=== PATIENT | female | born 1960 | race Two or more races ===

== ENCOUNTER 2022-12-21 19:35 | Inpatient (IN) | payer MEDICAID ==
[~2022-12-21] VITALS: Ht 167.6 cm; Wt 97.1 kg
[2022-12-21 21:21] LABS: GLUCOMETER DEV NAME(LOC) POC.BV; POC SARS-COV2 AG, FIA NEGATIVE (NEGATIVE)
[2022-12-21] MEDS ORDERED: INFLUENZA VIRUS VACCINE QVS 2023-24 (6MO+)/PF 60 MCG/0.5 ML SYRINGE IM. ONE (21:45)
[2022-12-21] MEDS: ZOLPIDEM TARTRATE 10 MG TABLET PO PRN (22:41)
[2022-12-21 22:54] VITALS: BP 111/85; PULSE 78; RESP 18; TEMP 97.2; O2SAT 97
[2022-12-22] MEDS ORDERED: OMEPRAZOLE 20 MG CAPSULE PO PRN (06:15)
[2022-12-22] MEDS ORDERED: ONDANSETRON HCL 4 MG TABLET PO PRN (06:15)
[2022-12-22] MEDS ORDERED: CloNIDine HCL 0.1 MG TABLET PO PRN (06:15)
[2022-12-22] MEDS ORDERED: ALBUTEROL SULFATE HFA 90 MCG/PUFF 8 GM INHALER IH PRN (06:15)
[2022-12-22] MEDS ORDERED: MAG HYDROX/ALUMINUM HYD/SIMETH ES 30 ML SUSPENSION UDCUP PO PRN (06:15)
[2022-12-22] MEDS ORDERED: PETROLATUM,WHITE 28 GM JELLY TP PRN (06:15)
[2022-12-22] MEDS ORDERED: IBUPROFEN 600 MG TABLET PO PRN (06:15)
[2022-12-22] MEDS ORDERED: BENZOCAINE/MENTHOL LOZENGE PO PRN (06:15)
[2022-12-22] MEDS ORDERED: MAGNESIUM HYDROXIDE SUSPENSION 30 ML UDCUP PO PRN (06:15)
[2022-12-22] MEDS ORDERED: BACITRACIN 28 GM OINTMENT TP PRN (06:15)
[2022-12-22] MEDS ORDERED: DOCUSATE SODIUM 100 MG CAPSULE PO PRN (06:15)
[2022-12-22] MEDS ORDERED: ACETAMINOPHEN 325 MG TABLET PO PRN (06:15)
[2022-12-22] MEDS ORDERED: LOPERAMIDE HCL 2 MG CAPSULE PO PRN (06:15)
[2022-12-22 07:45] LABS: BASOPHILS % (AUTO) 0.9 % (0.0-2.0); HEMATOCRIT 34.9 % (36-46); HEMOGLOBIN 11.7 g/dL (12.0-16.0); LYMPHOCYTES # (AUTO) 1.6 K/uL (1.0-4.8); LYMPHOCYTES % (AUTO) 25.4 % (22.0-44.0); MEAN CORPUSCULAR HEMOGLOBIN 29.4 pg (26.0-34.0); MEAN CORPUSCULAR HGB CONC 33.7 G/dL (31.0-37.0); MEAN CORPUSCULAR VOLUME 87 fL (80-100); MONOCYTES # (AUTO) 0.5 K/uL (0.1-1.0); MONOCYTES % (AUTO) 8.6 % (2.0-9.0); NEUTROPHILS # (AUTO) 3.6 K/uL (1.8-7.7); NEUTROPHILS % (AUTO) 59.1 % (40.0-70.0); PLATELET COUNT (AUTO) 303 K/uL (150-450); RED BLOOD CELL COUNT(AUTO) 3.99 MIL/uL (4.00-5.20); RED CELL DISTRIBUTION WIDTH 15.2 % (11.5-14.5); WHITE BLOOD COUNT (AUTO) 6.1 K/uL (4.5-11.0)
[2022-12-22 08:14] LABS: HEMOGLOBIN A1C 5.6 % (3.8-5.6)
[2022-12-22 08:16] VITALS: BP 122/80; PULSE 68; RESP 18; TEMP 97.8; O2SAT 95
[2022-12-22 08:16] LABS: ALANINE AMINOTRANSFERASE 58 U/L (12-78); ALBUMIN 3.2 g/dL (3.4-5.0); ALKALINE PHOSPHATASE 114 U/L (46-116); ANION GAP 9 mmol/L (8-16); ASPARTATE AMINOTRANSFERASE 26 U/L (15-37); BILIRUBIN,TOTAL 0.2 mg/dL (0.1-1.0); CALCIUM, TOTAL 9.4 mg/dL (8.8-10.5); CARBON DIOXIDE 28 mmol/L (22-29); CHLORIDE 101 mmol/L (98-107); CHOL/HDL RATIO 3.9 (3.9-5.7); CHOLESTEROL 201 mg/dL (131-200); CREATININE 0.92 mg/dL (0.60-1.30); FREE T4 (FREE THYROXINE) 0.96 ng/dL (0.76-1.46); GLOMERULAR FILTR. RATE CALC > 60 mL/min (>60); GLUCOSE,RANDOM 94 mg/dL (70-110); HDL CHOLESTEROL 52 mg/dL (40-60); LDL CHOL (CALC.) 126 mg/dL (0-130); POTASSIUM 3.9 mmol/L (3.5-5.1); SODIUM SERUM 138 mmol/L (136-145); THYROID STIMULATING HORMONE 1.09 uIU/mL (0.36-3.74); TRIGLYCERIDES 115 mg/dL (15-150); UREA NITROGEN, BLOOD 19 mg/dL (7-18)
[2022-12-22] MEDS: LORazepam 2 MG TABLET PO PRN ×2 (12:25→18:49)
[2022-12-22] MEDS ORDERED: MIRTAZAPINE 15 MG TABLET PO SCH (14:00)
[2022-12-22] MEDS: VENLAFAXINE HCL 150 MG ER CAPSULE PO SCH (15:27)
[2022-12-22] MEDS: LURASIDONE HCL 80 MG TABLET PO SCH (17:10)
[2022-12-22] MEDS: MetFORMIN HCL 500 MG TABLET PO SCH (18:35)
[2022-12-22] MEDS: HYDROCHLOROTHIAZIDE 25 MG TABLET PO SCH (18:35)
[2022-12-22] MEDS: LISINOPRIL 10 MG TABLET PO SCH (18:35)
[2022-12-22] MEDS: HALOPERIDOL 5 MG TABLET PO PRN (18:49)
[2022-12-22] MEDS: MIRTAZAPINE 15 MG TABLET PO SCH (20:39)
[2022-12-23] MEDS: ZOLPIDEM TARTRATE 10 MG TABLET PO PRN ×2 (01:08→21:22)
[2022-12-23 01:39] VITALS: BP 132/78; PULSE 65; RESP 18; TEMP 98; O2SAT 98
[2022-12-23] MEDS: LEVOTHYROXINE SODIUM 125 MCG TABLET PO SCH (06:30)
[2022-12-23] MEDS: MetFORMIN HCL 500 MG TABLET PO SCH ×2 (06:31→16:16)
[2022-12-23] MEDS: HYDROCHLOROTHIAZIDE 25 MG TABLET PO SCH (09:05)
[2022-12-23] MEDS: LISINOPRIL 10 MG TABLET PO SCH (09:05)
[2022-12-23] MEDS: VENLAFAXINE HCL 150 MG ER CAPSULE PO SCH (09:05)
[2022-12-23 09:24] VITALS: BP 135/99; PULSE 94; RESP 17; TEMP 97.6; O2SAT 97
[2022-12-23] MEDS: LORazepam 2 MG TABLET PO PRN ×2 (12:53→20:11)
[2022-12-23] MEDS: HALOPERIDOL 5 MG TABLET PO PRN (13:46)
[2022-12-23] MEDS: LURASIDONE HCL 80 MG TABLET PO SCH (16:16)
[2022-12-23 20:24] VITALS: BP 119/76; PULSE 74; RESP 18; TEMP 98; O2SAT 96
[2022-12-23] MEDS: MIRTAZAPINE 15 MG TABLET PO SCH (21:22)
[2022-12-24] MEDS: LEVOTHYROXINE SODIUM 125 MCG TABLET PO SCH (06:31)
[2022-12-24] MEDS: MetFORMIN HCL 500 MG TABLET PO SCH ×2 (06:31→17:12)
[2022-12-24 08:15] VITALS: BP 120/76; PULSE 71; RESP 17; TEMP 97.7; O2SAT 94
[2022-12-24] MEDS: VENLAFAXINE HCL 150 MG ER CAPSULE PO SCH (08:49)
[2022-12-24] MEDS: LISINOPRIL 10 MG TABLET PO SCH (08:49)
[2022-12-24] MEDS: HYDROCHLOROTHIAZIDE 25 MG TABLET PO SCH (08:49)
[2022-12-24 13:51] VITALS: BP 132/87; RESP 18; O2SAT 97
[2022-12-24] MEDS: LORazepam 2 MG TABLET PO PRN ×2 (13:52→20:59)
[2022-12-24] MEDS: HALOPERIDOL 5 MG TABLET PO PRN (13:52)
[2022-12-24] MEDS: LURASIDONE HCL 80 MG TABLET PO SCH (17:12)
[2022-12-24] MEDS: MIRTAZAPINE 15 MG TABLET PO SCH (20:16)
[2022-12-24 22:30] VITALS: BP 129/88; PULSE 99; RESP 18; TEMP 97.7; O2SAT 99
[2022-12-25] MEDS: MetFORMIN HCL 500 MG TABLET PO SCH ×2 (06:12→16:31)
[2022-12-25] MEDS: LEVOTHYROXINE SODIUM 125 MCG TABLET PO SCH (06:12)
[2022-12-25 08:24] LABS: APPEARANCE,URINE CLEAR (CLEAR); BILIRUBIN,URINE NEGATIVE (NEGATIVE); COLOR,URINE YELLOW (YELLOW); GLUCOSE, URINE (UA) NEGATIVE (NEGATIVE); KETONES,URINE NEGATIVE (NEGATIVE); LEUKOCYTE ESTERASE ,URINE NEGATIVE (NEGATIVE); NITRATE,URINE NEGATIVE (NEGATIVE); OCCULT BLOOD,URINE NEGATIVE (NEGATIVE); PH,URINE 6.5 (5.0-8.0); PH,URINE DRUG SCREEN 6.5 (5.0-8.0); PROTEIN,URINE NEGATIVE (NEGATIVE); SPECIFIC GRAVITIY, URINE 1.022 (1.003-1.030); UROBILINOGEN,URINE <=1.0 mg/dL (<=1.0)
[2022-12-25 08:31] LABS: ALCOHOL, URINE DRUG SCREEN NEGATIVE (NEGATIVE); AMPHET/METH SCREEN,URINE NEGATIVE (NEGATIVE); BARBITURATE SCREEN, URINE NEGATIVE (NEGATIVE); BENZODIAZEPINES SCREEN,URINE NEGATIVE (NEGATIVE); CANNABINOID SCREEN,URINE NEGATIVE (NEGATIVE); COCAINE SCREEN,URINE NEGATIVE (NEGATIVE); METHADONE SCREEN, URINE NEGATIVE (NEGATIVE); OPIATE SCREEN,URINE NEGATIVE (NEGATIVE); PHENCYCLIDINE SCREEN,URINE NEGATIVE (NEGATIVE)
[2022-12-25 08:37] VITALS: BP 122/76; PULSE 75; RESP 18; TEMP 98.6; O2SAT 98
[2022-12-25] MEDS: VENLAFAXINE HCL 150 MG ER CAPSULE PO SCH (08:50)
[2022-12-25] MEDS: LISINOPRIL 10 MG TABLET PO SCH (08:50)
[2022-12-25] MEDS: HYDROCHLOROTHIAZIDE 25 MG TABLET PO SCH (08:50)
[2022-12-25] MEDS: LORazepam 2 MG TABLET PO PRN ×2 (11:12→17:57)
[2022-12-25] MEDS: HALOPERIDOL 5 MG TABLET PO PRN ×2 (11:12→17:57)
[2022-12-25] MEDS: LURASIDONE HCL 80 MG TABLET PO SCH (16:31)
[2022-12-25] MEDS: QUEtiapine FUMARATE 100 MG TABLET PO SCH (20:15)
[2022-12-25] MEDS: MIRTAZAPINE 15 MG TABLET PO SCH (20:15)
[2022-12-25 21:14] VITALS: BP 123/75; PULSE 83; RESP 18; TEMP 98.1; O2SAT 97
[2022-12-26] MEDS: LEVOTHYROXINE SODIUM 125 MCG TABLET PO SCH (07:20)
[2022-12-26] MEDS: MetFORMIN HCL 500 MG TABLET PO SCH ×2 (07:20→17:12)
[2022-12-26 08:38] VITALS: BP 105/76; PULSE 60; RESP 17; TEMP 97.6; O2SAT 96
[2022-12-26] MEDS: HYDROCHLOROTHIAZIDE 25 MG TABLET PO SCH (09:31)
[2022-12-26] MEDS: LISINOPRIL 10 MG TABLET PO SCH (09:31)
[2022-12-26] MEDS: VENLAFAXINE HCL 150 MG ER CAPSULE PO SCH (09:31)
[2022-12-26] MEDS: LORazepam 2 MG TABLET PO PRN ×2 (09:57→14:58)
[2022-12-26] MEDS: HALOPERIDOL 5 MG TABLET PO PRN ×2 (09:57→14:58)
[2022-12-26] MEDS: LURASIDONE HCL 80 MG TABLET PO SCH (17:12)
[2022-12-26] MEDS: QUEtiapine FUMARATE 100 MG TABLET PO SCH (20:40)
[2022-12-26] MEDS: MIRTAZAPINE 15 MG TABLET PO SCH (20:41)
[2022-12-26] MEDS: ZOLPIDEM TARTRATE 10 MG TABLET PO PRN (20:45)
[2022-12-26 21:00] VITALS: BP 124/70; PULSE 82; RESP 18; TEMP 97.4; O2SAT 96
[2022-12-27] MEDS: MetFORMIN HCL 500 MG TABLET PO SCH ×2 (06:07→17:13)
[2022-12-27] MEDS: LEVOTHYROXINE SODIUM 125 MCG TABLET PO SCH (06:07)
[2022-12-27 09:38] VITALS: BP 130/84; PULSE 81; RESP 18; TEMP 98; O2SAT 96
[2022-12-27] MEDS: LISINOPRIL 10 MG TABLET PO SCH (09:41)
[2022-12-27] MEDS: VENLAFAXINE HCL 150 MG ER CAPSULE PO SCH (09:41)
[2022-12-27] MEDS: HYDROCHLOROTHIAZIDE 25 MG TABLET PO SCH (09:41)
[2022-12-27] MEDS: LORazepam 2 MG TABLET PO PRN ×2 (09:48→14:43)
[2022-12-27] MEDS: HALOPERIDOL 5 MG TABLET PO PRN ×2 (09:48→14:43)
[2022-12-27 14:41] VITALS: BP 117/86
[2022-12-27] MEDS: LURASIDONE HCL 80 MG TABLET PO SCH (17:13)
[2022-12-27 20:42] VITALS: BP 109/74; PULSE 75; RESP 18; TEMP 97.7; O2SAT 97
[2022-12-27] MEDS: ZOLPIDEM TARTRATE 10 MG TABLET PO PRN (21:38)
[2022-12-27] MEDS: MIRTAZAPINE 15 MG TABLET PO SCH (21:38)
[2022-12-27] MEDS: QUEtiapine FUMARATE 100 MG TABLET PO SCH (21:39)
[2022-12-28] MEDS: MetFORMIN HCL 500 MG TABLET PO SCH ×2 (06:27→16:34)
[2022-12-28] MEDS: LEVOTHYROXINE SODIUM 125 MCG TABLET PO SCH (06:27)
[2022-12-28 08:25] VITALS: BP 100/65; PULSE 72; RESP 18; TEMP 98; O2SAT 99
[2022-12-28 08:29] VITALS: BP 130/93; PULSE 82; RESP 17; TEMP 98; O2SAT 94
[2022-12-28] MEDS: VENLAFAXINE HCL 150 MG ER CAPSULE PO SCH (08:43)
[2022-12-28] MEDS: LISINOPRIL 10 MG TABLET PO SCH (08:44)
[2022-12-28] MEDS: HYDROCHLOROTHIAZIDE 25 MG TABLET PO SCH (08:44)
[2022-12-28] MEDS: HALOPERIDOL 5 MG TABLET PO PRN (09:29)
[2022-12-28] MEDS: LURASIDONE HCL 80 MG TABLET PO SCH (16:33)
[2022-12-28] MEDS: MIRTAZAPINE 15 MG TABLET PO SCH (20:38)
[2022-12-28] MEDS: QUEtiapine FUMARATE 100 MG TABLET PO SCH (20:38)
[2022-12-28 20:41] VITALS: BP 100/70; PULSE 86; RESP 17; TEMP 97; O2SAT 95
[2022-12-28] MEDS: ZOLPIDEM TARTRATE 10 MG TABLET PO PRN (20:42)
[2022-12-29] MEDS: HALOPERIDOL 5 MG TABLET PO PRN ×3 (04:11→16:45)
[2022-12-29] MEDS: LEVOTHYROXINE SODIUM 125 MCG TABLET PO SCH (06:48)
[2022-12-29] MEDS: MetFORMIN HCL 500 MG TABLET PO SCH ×2 (06:48→16:44)
[2022-12-29 08:22] VITALS: BP 127/80; PULSE 85; RESP 18; TEMP 98; O2SAT 95
[2022-12-29] MEDS: HYDROCHLOROTHIAZIDE 25 MG TABLET PO SCH (09:55)
[2022-12-29] MEDS: VENLAFAXINE HCL 150 MG ER CAPSULE PO SCH (09:55)
[2022-12-29] MEDS: LISINOPRIL 10 MG TABLET PO SCH (09:55)
[2022-12-29] MEDS: LURASIDONE HCL 80 MG TABLET PO SCH (16:44)
[2022-12-29 20:16] VITALS: BP 106/81; PULSE 84; RESP 17; TEMP 98; O2SAT 95
[2022-12-29] MEDS: MIRTAZAPINE 15 MG TABLET PO SCH (20:56)
[2022-12-29] MEDS: QUEtiapine FUMARATE 100 MG TABLET PO SCH (20:56)
[2022-12-30] MEDS: HALOPERIDOL 5 MG TABLET PO PRN ×3 (03:51→16:53)
[2022-12-30] MEDS: MetFORMIN HCL 500 MG TABLET PO SCH ×2 (06:16→16:35)
[2022-12-30] MEDS: LEVOTHYROXINE SODIUM 125 MCG TABLET PO SCH (06:16)
[2022-12-30 08:48] VITALS: BP 108/62; PULSE 89; RESP 17; TEMP 97.2; O2SAT 95
[2022-12-30] MEDS: HYDROCHLOROTHIAZIDE 25 MG TABLET PO SCH (09:29)
[2022-12-30] MEDS: VENLAFAXINE HCL 150 MG ER CAPSULE PO SCH (09:29)
[2022-12-30] MEDS: LISINOPRIL 10 MG TABLET PO SCH (09:29)
[2022-12-30] MEDS: LURASIDONE HCL 80 MG TABLET PO SCH (16:35)
[2022-12-30 20:17] VITALS: BP 136/82; PULSE 101; RESP 19; TEMP 98.2; O2SAT 100
[2022-12-30] MEDS: QUEtiapine FUMARATE 100 MG TABLET PO SCH (20:26)
[2022-12-30] MEDS: MIRTAZAPINE 15 MG TABLET PO SCH (20:26)
[2022-12-31] MEDS: LEVOTHYROXINE SODIUM 125 MCG TABLET PO SCH (06:30)
[2022-12-31] MEDS: MetFORMIN HCL 500 MG TABLET PO SCH ×2 (06:30→16:23)
[2022-12-31 08:32] VITALS: BP 117/86; PULSE 77; RESP 18; TEMP 97.9; O2SAT 97
[2022-12-31] MEDS: HALOPERIDOL 5 MG TABLET PO PRN ×2 (09:05→16:23)
[2022-12-31] MEDS: LISINOPRIL 10 MG TABLET PO SCH (09:05)
[2022-12-31] MEDS: VENLAFAXINE HCL 150 MG ER CAPSULE PO SCH (09:05)
[2022-12-31] MEDS: HYDROCHLOROTHIAZIDE 25 MG TABLET PO SCH (09:07)
[2022-12-31] MEDS: LURASIDONE HCL 80 MG TABLET PO SCH (16:23)
[2022-12-31 20:09] VITALS: BP 101/65; PULSE 79; RESP 18; TEMP 98.1; O2SAT 98
[2022-12-31] MEDS: QUEtiapine FUMARATE 100 MG TABLET PO SCH (20:18)
[2022-12-31] MEDS: MIRTAZAPINE 15 MG TABLET PO SCH (20:18)
[2023-01-01] MEDS: MetFORMIN HCL 500 MG TABLET PO SCH ×2 (06:23→16:12)
[2023-01-01] MEDS: LEVOTHYROXINE SODIUM 125 MCG TABLET PO SCH (06:23)
[2023-01-01] MEDS: HYDROCHLOROTHIAZIDE 25 MG TABLET PO SCH (08:24)
[2023-01-01] MEDS: HALOPERIDOL 5 MG TABLET PO PRN (08:24)
[2023-01-01] MEDS: LISINOPRIL 10 MG TABLET PO SCH (08:24)
[2023-01-01] MEDS: VENLAFAXINE HCL 150 MG ER CAPSULE PO SCH (08:24)
[2023-01-01 08:37] VITALS: BP 111/63; PULSE 97; RESP 19; TEMP 98.2; O2SAT 95
[2023-01-01] MEDS: LURASIDONE HCL 80 MG TABLET PO SCH (16:12)
[2023-01-01] MEDS: MIRTAZAPINE 15 MG TABLET PO SCH (20:41)
[2023-01-01] MEDS: QUEtiapine FUMARATE 100 MG TABLET PO SCH (20:41)
[2023-01-01 20:46] VITALS: BP 103/95; PULSE 71; RESP 18; TEMP 97.7; O2SAT 96
[2023-01-02 03:15] VITALS: BP 141/101; RESP 16; O2SAT 93
[2023-01-02 05:11] VITALS: BP 130/92; PULSE 100; RESP 18; TEMP 97.5; O2SAT 96
[2023-01-02] MEDS: MetFORMIN HCL 500 MG TABLET PO SCH (06:25)
[2023-01-02] MEDS: LEVOTHYROXINE SODIUM 125 MCG TABLET PO SCH (06:25)
[2023-01-02 09:18] VITALS: BP 131/82; PULSE 98; RESP 16; TEMP 97.6; O2SAT 96
[2023-01-02] MEDS: VENLAFAXINE HCL 150 MG ER CAPSULE PO SCH (09:21)
[2023-01-02] MEDS: LISINOPRIL 10 MG TABLET PO SCH (09:21)
[2023-01-02] MEDS: HYDROCHLOROTHIAZIDE 25 MG TABLET PO SCH (09:21)
[2023-01-02] MEDS ORDERED: METF-1211 PO (12:07)
[2023-01-02] MEDS ORDERED: LURA80TA2 PO (12:08)
[2023-01-02] MEDS ORDERED: MIRT-89 PO (12:09)
[2023-01-02] MEDS ORDERED: QUET100T PO (12:10)
[2023-01-02] MEDS ORDERED: [UNRECOGNIZED DRUG - CODE] PO (12:12)
[2023-01-02] MEDS ORDERED: VENL-68 PO (12:13)
[2023-01-02] MEDS ORDERED: HYDR25TA2 PO (12:13)
[2023-01-02] MEDS ORDERED: LISI-893 PO (12:14)
== END 2023-01-02 14:45 | disposition home or self-care (01) | DRG 750 ==
LOC: B2S 21:09
PROVIDERS: ADMIT Psychiatry & Neurology Psychiatry; ATTEND Psychiatry & Neurology Psychiatry
DX: F25.9 Schizoaffective disorder, unspecified (principal); R45.851 Suicidal ideations; E66.9 Obesity, unspecified; F41.9 Anxiety disorder, unspecified; G47.00 Insomnia, unspecified; Z20.822 Contact with and (suspected) exposure to COVID-19; K59.00 Constipation, unspecified; Z68.34 Body mass index [BMI] 34.0-34.9, adult; Z88.0 Allergy status to penicillin
CPT/HCPCS: 80053; 80061; 80307; 81003; 83036; 84439; 84443; 85025

== ENCOUNTER 2023-01-24 21:55 | Inpatient (IN) | payer MEDICAID, OTHER ==
[~2023-01-24] VITALS: Ht 170.2 cm; Wt 100.0 kg
[~2023-01-24 21:55] MED LIST: HYDR25TA2 PO; LISI-893 PO; LURA80TA2 PO; METF-1211 PO; MIRT-89 PO; QUET100T PO; VENL-68 PO; [UNRECOGNIZED DRUG - CODE] PO
[2023-01-24] MEDS ORDERED: IOHEXOL 350 MG/ML 100 ML VIAL ONE (22:12)
[2023-01-24] MEDS ORDERED: SODIUM CHLORIDE 0.9% 100 ML ONE (22:12)
[2023-01-24] MEDS ORDERED: LABETALOL HCL 5 MG/ML 20 ML VIAL IVP PRN ×2 (22:15)
[2023-01-24] MEDS ORDERED: ONDANSETRON HCL 4 MG/2 ML VIAL IVP PRN (22:45)
[2023-01-24 22:49] LABS: BASOPHILS % (AUTO) 0.9 % (0.0-2.0); EOSINOPHILS % (AUTO) 2.8 % (1.0-6.0); HEMATOCRIT 35.9 % (36-46); HEMOGLOBIN 12.1 g/dL (12.0-16.0); LYMPHOCYTES # (AUTO) 1.4 K/uL (1.0-4.8); LYMPHOCYTES % (AUTO) 26.5 % (22.0-44.0); MEAN CORPUSCULAR HEMOGLOBIN 29.8 pg (26.0-34.0); MEAN CORPUSCULAR HGB CONC 33.7 G/dL (31.0-37.0); MEAN CORPUSCULAR VOLUME 88 fL (80-100); MONOCYTES # (AUTO) 0.2 K/uL (0.1-1.0); MONOCYTES % (AUTO) 4.8 % (2.0-9.0); NEUTROPHILS # (AUTO) 3.3 K/uL (1.8-7.7); PLATELET COUNT (AUTO) 324 K/uL (150-450); RED BLOOD CELL COUNT(AUTO) 4.06 MIL/uL (4.00-5.20); RED CELL DISTRIBUTION WIDTH 15.4 % (11.5-14.5); WHITE BLOOD COUNT (AUTO) 5.1 K/uL (4.5-11.0)
[2023-01-24 22:57] LABS: CALCIUM, TOTAL 9.3 mg/dL (8.8-10.5); CREATININE 1.17 mg/dL (0.60-1.30); POTASSIUM 3.4 mmol/L (3.5-5.1)
[2023-01-24 23:00] LABS: INR 0.9 (0.9-1.1); PROTHROMBIN TIME 9.9 SEC (9.4-11.6)
[2023-01-24 23:02] LABS: CHOL/HDL RATIO 4.3 (3.9-5.7)
[2023-01-24 23:03] LABS: ALBUMIN 3.6 g/dL (3.4-5.0); BILIRUBIN,TOTAL 0.1 mg/dL (0.1-1.0); TOTAL PROTEIN, SERUM 7.5 g/dL (6.4-8.2)
[2023-01-24 23:04] LABS: TROPONIN I-HIGH SENSITIVITY 11 ng/L (<51)
[2023-01-24 23:10] LABS: COVID AG,FIA SOURCE NASAL SWAB
[2023-01-24 23:29] LABS: SARS-COV2 (COVID) ANTIGEN,FIA Negative (Negative)
[2023-01-25 02:27] VITALS: BP 143/96; PULSE 71; RESP 18; TEMP 98
[2023-01-25 02:45] LABS: TROPONIN I-HIGH SENSITIVITY 13 ng/L (<51)
[2023-01-25 04:00] VITALS: BP 136/68; PULSE 70; RESP 19; TEMP 98.2
[2023-01-25 04:45] LABS: APPEARANCE,URINE CLEAR (CLEAR); BILIRUBIN,URINE NEGATIVE (NEGATIVE); COLOR,URINE LIGHT YELLOW (YELLOW); GLUCOSE, URINE (UA) NEGATIVE (NEGATIVE); KETONES,URINE NEGATIVE (NEGATIVE); LEUKOCYTE ESTERASE ,URINE NEGATIVE (NEGATIVE); NITRATE,URINE NEGATIVE (NEGATIVE); OCCULT BLOOD,URINE NEGATIVE (NEGATIVE); PH,URINE 5.5 (5.0-8.0); PH,URINE DRUG SCREEN 5.5 (5.0-8.0); PROTEIN,URINE TRACE mg/dL (NEGATIVE); UROBILINOGEN,URINE <=1.0 mg/dL (<=1.0)
[2023-01-25 04:50] LABS: ALCOHOL, URINE DRUG SCREEN POSITIVE (NEGATIVE); AMPHET/METH SCREEN,URINE NEGATIVE (NEGATIVE); BARBITURATE SCREEN, URINE NEGATIVE (NEGATIVE); BENZODIAZEPINES SCREEN,URINE NEGATIVE (NEGATIVE); CANNABINOID SCREEN,URINE POSITIVE (NEGATIVE); COCAINE SCREEN,URINE NEGATIVE (NEGATIVE); METHADONE SCREEN, URINE NEGATIVE (NEGATIVE); OPIATE SCREEN,URINE NEGATIVE (NEGATIVE); PHENCYCLIDINE SCREEN,URINE NEGATIVE (NEGATIVE)
[2023-01-25 05:33] LABS: BACTERIA,URINE None Seen /HPF (None Seen); RBC,URINE None Seen /HPF (0-2); SQUAMOUS EPITHELIAL CELL,UR Few /LPF (None Seen); WBC,URINE None Seen /HPF (0-5)
[2023-01-25 06:55] LABS: BASOPHILS % (AUTO) 1.3 % (0.0-2.0); EOSINOPHILS % (AUTO) 6.2 % (1.0-6.0); HEMATOCRIT 33.7 % (36-46); HEMOGLOBIN 11.6 g/dL (12.0-16.0); LYMPHOCYTES # (AUTO) 1.8 K/uL (1.0-4.8); LYMPHOCYTES % (AUTO) 34.3 % (22.0-44.0); MEAN CORPUSCULAR HGB CONC 34.4 G/dL (31.0-37.0); MEAN CORPUSCULAR VOLUME 87 fL (80-100); MONOCYTES # (AUTO) 0.5 K/uL (0.1-1.0); MONOCYTES % (AUTO) 8.8 % (2.0-9.0); NEUTROPHILS # (AUTO) 2.6 K/uL (1.8-7.7); NEUTROPHILS % (AUTO) 49.4 % (40.0-70.0); PLATELET COUNT (AUTO) 290 K/uL (150-450); RED BLOOD CELL COUNT(AUTO) 3.86 MIL/uL (4.00-5.20); RED CELL DISTRIBUTION WIDTH 15.6 % (11.5-14.5); WHITE BLOOD COUNT (AUTO) 5.4 K/uL (4.5-11.0)
[2023-01-25 07:21] LABS: TROPONIN I-HIGH SENSITIVITY 17 ng/L (<51)
[2023-01-25 07:22] LABS: ANION GAP 9 mmol/L (8-16); CALCIUM, TOTAL 8.7 mg/dL (8.8-10.5); CARBON DIOXIDE 29 mmol/L (22-29); CHLORIDE 104 mmol/L (98-107); CREATININE 0.86 mg/dL (0.60-1.30); GLOMERULAR FILTR. RATE CALC > 60 mL/min (>60); GLUCOSE,RANDOM 96 mg/dL (70-110); POTASSIUM 3.6 mmol/L (3.5-5.1); SODIUM SERUM 142 mmol/L (136-145); UREA NITROGEN, BLOOD 18 mg/dL (7-18)
[2023-01-25] MEDS: ACETAMINOPHEN 325 MG TABLET PO PRN ×3 (07:25→21:23)
[2023-01-25 08:29] VITALS: BP 148/103; PULSE 76; RESP 18; TEMP 98.2
[2023-01-25] MEDS: ASPIRIN 81 MG CHEWABLE TABLET PO SCH (09:04)
[2023-01-25] MEDS: ATORVASTATIN CALCIUM 40 MG TABLET PO SCH (09:04)
[2023-01-25] MEDS: HEPARIN SODIUM,PORCINE 5,000 UNITS/ML VIAL SQ SCH ×2 (09:06→16:09)
[2023-01-25 11:37] VITALS: BP 149/82; PULSE 69; RESP 18; TEMP 97.8
[2023-01-25 15:39] VITALS: BP 130/73; PULSE 73; RESP 18; TEMP 98
[2023-01-25 20:04] VITALS: BP 116/66; PULSE 73; RESP 18; TEMP 97.7
[2023-01-26] MEDS: HEPARIN SODIUM,PORCINE 5,000 UNITS/ML VIAL SQ SCH ×2 (00:04→08:19)
[2023-01-26 00:26] VITALS: BP 126/86; PULSE 68; RESP 17; TEMP 98
[2023-01-26] MEDS: ACETAMINOPHEN 325 MG TABLET PO PRN (05:25)
[2023-01-26 06:35] VITALS: BP 115/77; PULSE 69; RESP 18; TEMP 98.3
[2023-01-26 07:45] VITALS: BP 151/81; PULSE 68; RESP 18; TEMP 98.3
[2023-01-26] MEDS: ASPIRIN 81 MG CHEWABLE TABLET PO SCH (08:20)
[2023-01-26] MEDS: ATORVASTATIN CALCIUM 40 MG TABLET PO SCH (08:20)
[2023-01-26] MEDS ORDERED: ATOR40TA71 PO (11:29)
[2023-01-26] MEDS ORDERED: ASPI81 PO (11:29)
[2023-01-26 12:00] VITALS: BP 140/87; PULSE 76; RESP 18; TEMP 98
== END 2023-01-26 13:20 | disposition home or self-care (01) | DRG 52 ==
LOC: EMS 21:57 → 5S 01-25 00:57
PROVIDERS: ADMIT Internal Medicine; ATTEND Internal Medicine
DX: G92.9 Unspecified toxic encephalopathy (principal); J96.01 Acute respiratory failure with hypoxia; E78.5 Hyperlipidemia, unspecified; E03.9 Hypothyroidism, unspecified; E11.9 Type 2 diabetes mellitus without complications; F10.929 Alcohol use, unspecified with intoxication, unspecified; E66.01 Morbid (severe) obesity due to excess calories; I50.9 Heart failure, unspecified; Z20.822 Contact with and (suspected) exposure to COVID-19; Z88.0 Allergy status to penicillin; I11.0 Hypertensive heart disease with heart failure; R29.810 Facial weakness; Z68.34 Body mass index [BMI] 34.0-34.9, adult; Z79.899 Other long term (current) drug therapy
CPT/HCPCS: 70450; 70496; 70498; 71045; 80048; 80053; 80061; 80307; 81001; 82948; 83036; 83735; 84484; 85025; 85610; 87081; 92526; 93005; 97116; 97161; 97165; 99291; G0378; G0480; J1644; J3490; J7050; Q9967; 36415-L1; 36415-TC

== ENCOUNTER 2023-11-07 19:12 | Inpatient (IN) | payer OTHER ==
[~2023-11-07] VITALS: Ht 167.6 cm; Wt 90.4 kg
[~2023-11-07 19:12] MED LIST changes: +ASPI81 PO; +ATOR40TA71 PO
[2023-11-07 20:56] LABS: BASOPHILS % (AUTO) 0.9 % (0.0-2.0); EOSINOPHILS % (AUTO) 3.1 % (1.0-6.0); HEMATOCRIT 32.2 % (36-46); HEMOGLOBIN 9.9 g/dL (12.0-16.0); LYMPHOCYTES # (AUTO) 1.4 K/uL (1.0-4.8); LYMPHOCYTES % (AUTO) 15.1 % (22.0-44.0); MEAN CORPUSCULAR HEMOGLOBIN 21.5 pg (26.0-34.0); MEAN CORPUSCULAR HGB CONC 30.8 G/dL (31.0-37.0); MEAN CORPUSCULAR VOLUME 70 fL (80-100); MONOCYTES # (AUTO) 0.5 K/uL (0.1-1.0); MONOCYTES % (AUTO) 5.6 % (2.0-9.0); NEUTROPHILS # (AUTO) 7.1 K/uL (1.8-7.7); NEUTROPHILS % (AUTO) 75.3 % (40.0-70.0); PLATELET COUNT (AUTO) 481 K/uL (150-450); RED BLOOD CELL COUNT(AUTO) 4.61 MIL/uL (4.00-5.20); RED CELL DISTRIBUTION WIDTH 22.2 % (11.5-14.5); WHITE BLOOD COUNT (AUTO) 9.4 K/uL (4.5-11.0)
[2023-11-07 21:09] LABS: CALCIUM, TOTAL 8.4 mg/dL (8.8-10.5); CREATININE 0.99 mg/dL (0.60-1.30)
[2023-11-07 21:25] LABS: POTASSIUM 2.5 mmol/L (3.5-5.1)
[2023-11-07 21:27] LABS: TROPONIN I-HIGH SENSITIVITY 7 ng/L (<51)
[2023-11-07 21:28] LABS: ALBUMIN 3.4 g/dL (3.4-5.0); BILIRUBIN,DIRECT 0.1 mg/dL (0.00-0.20); BILIRUBIN,TOTAL 0.2 mg/dL (0.1-1.0); TOTAL PROTEIN, SERUM 7.1 g/dL (6.4-8.2)
[2023-11-07 21:34] LABS: AMMONIA 13 umol/L (11-32)
[2023-11-07 21:41] LABS: RBC MORPHOLOGY COMMENT ABNORMAL RBC MORPH
[2023-11-07 21:46] LABS: MAGNESIUM 1.7 mg/dL (1.80-2.40); PHOSPHORUS 2.6 mg/dL (2.5-4.9)
[2023-11-07] MEDS ORDERED: MAGNESIUM OXIDE 400 MG TABLET PO PRN (22:00)
[2023-11-07] MEDS ORDERED: MAGNESIUM SULFATE 4 GM/WATER 100 ML IV PRN (22:00)
[2023-11-07] MEDS ORDERED: POTASSIUM CHL 10 MEQ/WATER 50 ML IV PRN (22:00)
[2023-11-07] MEDS ORDERED: ACETAMINOPHEN 325 MG TABLET PO PRN (22:00)
[2023-11-07] MEDS ORDERED: POTASSIUM CHLORIDE 20 MEQ ER TABLET PO PRN (22:00)
[2023-11-07] MEDS: POTASSIUM CHLORIDE 20 MEQ ER TABLET PO ONE (22:49)
[2023-11-07] MEDS: POTASSIUM CHL 10 MEQ/WATER 50 ML IV SCH (22:49)
[2023-11-08] VITALS (9 sets, daily range): BP systolic 105–143; BP diastolic 51–88; PULSE 61–79; RESP 18–20; TEMP 97.2–98.2; O2SAT 96–99
[2023-11-08] MEDS: HEPARIN SODIUM,PORCINE 5,000 UNITS/ML VIAL SQ SCH
[2023-11-08 05:20] LABS: BASOPHILS % (AUTO) 1.5 % (0.0-2.0); EOSINOPHILS % (AUTO) 4.7 % (1.0-6.0); HEMOGLOBIN 9.1 g/dL (12.0-16.0); LYMPHOCYTES # (AUTO) 1.7 K/uL (1.0-4.8); LYMPHOCYTES % (AUTO) 27.3 % (22.0-44.0); MEAN CORPUSCULAR HEMOGLOBIN 21.4 pg (26.0-34.0); MEAN CORPUSCULAR HGB CONC 31.5 G/dL (31.0-37.0); MEAN CORPUSCULAR VOLUME 68 fL (80-100); MONOCYTES # (AUTO) 0.5 K/uL (0.1-1.0); MONOCYTES % (AUTO) 8.5 % (2.0-9.0); NEUTROPHILS # (AUTO) 3.7 K/uL (1.8-7.7); PLATELET COUNT (AUTO) 421 K/uL (150-450); RED BLOOD CELL COUNT(AUTO) 4.27 MIL/uL (4.00-5.20); RED CELL DISTRIBUTION WIDTH 21.7 % (11.5-14.5); WHITE BLOOD COUNT (AUTO) 6.4 K/uL (4.5-11.0)
[2023-11-08 05:31] LABS: ANION GAP 16 mmol/L (8-16); CALCIUM, TOTAL 8.5 mg/dL (8.8-10.5); CARBON DIOXIDE 25 mmol/L (22-29); CHLORIDE 103 mmol/L (98-107); CREATININE 0.83 mg/dL (0.60-1.30); GLOMERULAR FILTR. RATE CALC > 60 mL/min (>60); GLUCOSE,RANDOM 93 mg/dL (70-110); POTASSIUM 3.9 mmol/L (3.5-5.1); SODIUM SERUM 144 mmol/L (136-145); UREA NITROGEN, BLOOD 9 mg/dL (7-18)
[2023-11-08 05:44] LABS: RBC MORPHOLOGY COMMENT ABNORMAL RBC MORPH
[2023-11-08] MEDS ORDERED: DEXTROSE 5% IV ONE (06:45)
[2023-11-08] MEDS ORDERED: ONDANSETRON IV ONE (06:45)
[2023-11-08] MEDS ORDERED: WATER IV ONE (06:45)
[2023-11-08] MEDS: ONDANSETRON 4 MG RAPDIS TABLET PO ONE (06:56)
[2023-11-08 07:23] LABS: APPEARANCE,URINE CLEAR (CLEAR); BILIRUBIN,URINE NEGATIVE (NEGATIVE); COLOR,URINE LIGHT YELLOW (YELLOW); GLUCOSE, URINE (UA) NEGATIVE (NEGATIVE); KETONES,URINE NEGATIVE (NEGATIVE); LEUKOCYTE ESTERASE ,URINE NEGATIVE (NEGATIVE); NITRATE,URINE NEGATIVE (NEGATIVE); OCCULT BLOOD,URINE NEGATIVE (NEGATIVE); PROTEIN,URINE TRACE mg/dL (NEGATIVE); SPECIFIC GRAVITIY, URINE 1.021 (1.003-1.030); UROBILINOGEN,URINE <=1.0 mg/dL (<=1.0)
[2023-11-08 07:30] LABS: ALCOHOL, URINE DRUG SCREEN POSITIVE (NEGATIVE); AMPHET/METH SCREEN,URINE NEGATIVE (NEGATIVE); BARBITURATE SCREEN, URINE NEGATIVE (NEGATIVE); BENZODIAZEPINES SCREEN,URINE NEGATIVE (NEGATIVE); CANNABINOID SCREEN,URINE POSITIVE (NEGATIVE); COCAINE SCREEN,URINE NEGATIVE (NEGATIVE); METHADONE SCREEN, URINE NEGATIVE (NEGATIVE); OPIATE SCREEN,URINE NEGATIVE (NEGATIVE); PHENCYCLIDINE SCREEN,URINE NEGATIVE (NEGATIVE)
[2023-11-08] MEDS: LORazepam 2 MG TABLET PO PRN (08:46)
[2023-11-08] MEDS: DOCUSATE SODIUM 100 MG CAPSULE PO SCH (12:18)
[2023-11-08] MEDS: MAGNESIUM SULFATE 2 GM/WATER 50 ML IV PRN (12:49)
[2023-11-08] MEDS: MAGNESIUM SULFATE 2 GM/WATER 50 ML IV ONE (12:50)
[2023-11-08] MEDS ORDERED: SODIUM CHLORIDE 0.9% 250 ML IV ONE (12:53)
[2023-11-08] MEDS ORDERED: LURA20TA PO (17:42)
[2023-11-08] MEDS ORDERED: BUPR-514 PO (17:42)
[2023-11-08] MEDS: LURASIDONE HCL 40 MG TABLET PO SCH (18:59)
[2023-11-08] MEDS: ZOLPIDEM TARTRATE 5 MG TABLET PO PRN (20:48)
[2023-11-09 00:23] VITALS: BP 134/78; PULSE 76; RESP 18; TEMP 98.2; O2SAT 97
[2023-11-09 06:03] VITALS: BP 141/80; PULSE 79; RESP 18; TEMP 97.7
[2023-11-09 08:03] LABS: MAGNESIUM 2.2 mg/dL (1.80-2.40); POTASSIUM 3.9 mmol/L (3.5-5.1)
[2023-11-09] MEDS: LORazepam 2 MG TABLET PO SCH (08:48)
[2023-11-09 08:50] VITALS: BP 120/72; PULSE 71; RESP 19; TEMP 97.9; O2SAT 97
[2023-11-09] MEDS: BuPROPion HCL XL 150 MG ER TABLET PO SCH (09:27)
[2023-11-09] MEDS: LORazepam 2 MG TABLET PO PRN ×2 (10:37→12:34)
[2023-11-09 11:51] VITALS: BP 145/90; PULSE 70; RESP 19; TEMP 97.8; O2SAT 98
[2023-11-09 15:56] VITALS: BP 126/92; PULSE 79; RESP 20; TEMP 97.9; O2SAT 94
[2023-11-09] MEDS: LORazepam 1 MG TABLET PO PRN (17:15)
[2023-11-09 19:38] VITALS: BP 117/71; PULSE 72; RESP 19; TEMP 97.9; O2SAT 93
[2023-11-10 00:21] VITALS: BP 129/72; PULSE 80; RESP 18; TEMP 98; O2SAT 96
[2023-11-10 04:59] VITALS: BP 123/76; PULSE 75; RESP 18; TEMP 98.1; O2SAT 97
[2023-11-10 08:07] VITALS: BP 126/76; PULSE 69; RESP 16; TEMP 97.8; O2SAT 97
[2023-11-10] MEDS ORDERED: LORA-999 PO (11:39)
[2023-11-10] MEDS: ASPIRIN 81 MG CHEWABLE TABLET PO SCH (14:48)
[2023-11-10] MEDS: LORazepam 0.5 MG TABLET PO PRN (14:57)
[2023-11-10 16:18] VITALS: BP 132/78; PULSE 70; RESP 16; TEMP 97.4; O2SAT 99
[2023-11-10 19:19] VITALS: BP 117/73; PULSE 81; RESP 18; TEMP 97.7; O2SAT 98
[2023-11-10] MEDS: ATORVASTATIN CALCIUM 20 MG TABLET PO SCH (20:53)
[2023-11-11 03:30] VITALS: BP 117/74; PULSE 94; RESP 18; TEMP 98; O2SAT 96
[2023-11-11 05:59] VITALS: BP 121/78; PULSE 75; RESP 18; TEMP 98.1; O2SAT 95
[2023-11-11] MEDS ORDERED: LORazepam 1 MG TABLET PO PRN (07:00)
[2023-11-11 08:08] VITALS: BP 131/80; PULSE 70; RESP 18; TEMP 97.8; O2SAT 98
[2023-11-11] MEDS ORDERED: LORazepam 1 MG TABLET PO SCH (09:00)
[2023-11-12] MEDS ORDERED: LORazepam 1 MG TABLET PO PRN (07:00)
== END 2023-11-11 15:29 | disposition home or self-care (01) | DRG 52 ==
LOC: EMS 19:20 → EDH 21:51 → 5N 11-08 09:31 → 5S 11-08 22:07 → 4E 11-11 03:42
PROVIDERS: ADMIT Internal Medicine; ATTEND Internal Medicine
DX: G92.9 Unspecified toxic encephalopathy (principal); F25.1 Schizoaffective disorder, depressive type; R45.851 Suicidal ideations; F10.229 Alcohol dependence with intoxication, unspecified; E87.6 Hypokalemia; F10.239 Alcohol dependence with withdrawal, unspecified; I10 Essential (primary) hypertension; E78.5 Hyperlipidemia, unspecified; F41.9 Anxiety disorder, unspecified; E03.9 Hypothyroidism, unspecified; E83.42 Hypomagnesemia; G47.00 Insomnia, unspecified; Z88.0 Allergy status to penicillin
CPT/HCPCS: 70450; 70551; 80048; 80076; 80307; 81003; 82040; 82140; 83735; 84100; 84132; 84484; 85025; 93005; 99285; G0378; G0480; J1644; J2405; J3475; J3480; J7050; J7060